=== PATIENT | male | born 1990 | race Caucasian/White ===

== ENCOUNTER 2017-08-23 09:05 | Emergency (ER) | payer SELFPAY ==
[2017-08-23 09:06] VITALS: BP 128/75; PULSE 66; RESP 20; TEMP 37; O2SAT 98; BMI 27.1
--- NOTE | 2017-08-23 09:39 | CT_ITS ---
CT abdomen pelvis wo con CLINICAL INDICATION: ITS.REASON: RT SIDE ABD PAIN ORDERING PHYSICIAN: John Kearns MD PATIENT AGE: 27 years COMPARISON: None TECHNIQUE: Axial images obtained with sagittal and coronal reformats. PROCEDURE: Oral Contrast: None IV Contrast: None . FINDINGS: No acute finding in the lung bases. The liver, gallbladder, spleen, adrenal glands, and pancreas have an unremarkable unenhanced CT appearance. No renal calculi or hydronephrosis. No ureteral calculi. No evidence of appendicitis. There is a small appendicolith in the mid aspect of the body of the appendix but no dilatation or stranding of the periappendiceal fat. No intestinal obstruction or free air. Scattered small lymph nodes present in the mesentery's nonspecific. No pelvic mass abnormal fluid collection or focal inflammatory change. No acute bony anomalies. Small umbilical hernia contains fat IMPRESSION: No acute abdominal or pelvic findings. No evidence of appendicitis or obstructing ureteral calculus. There is an appendicolith present as an incidental finding. Lower thorax: No acute finding ABDOMEN: Liver: No masses or biliary dilatation. Gallbladder: Nondistended. No radio opaque stones. Pancreas: No masses or peripancreatic fluid collections. Spleen: Unremarkable. Adrenals: Unremarkable Kidneys/ureters: No masses. No renal calculi. No hydronephrosis. No perinephric fluid collections. No ureteral dilatation or obvious ureteral calculi. Stomach bowel: Nondistended. No obvious mass or thickening. Appendix: No evidence of appendicitis. PELVIS: Reproductive: Unremarkable Bladder: Nondistended. No obvious stones or masses. ABDOMEN & PELVIS: Peritoneum: No abnormal fluid collections. No obvious inflammatory changes. No free air. Lymph nodes: No enlarged lymph nodes apparent. Vasculature: No evidence of abdominal aortic aneurysm. No retroperitoneal hemorrhage evident. Bones: No acute fracture IMPRESSION: Negative, no acute intra-abdominal or pelvic pathology apparent
--- NOTE | 2017-08-23 09:42 | HMH.EDGENADL ---
ED Disposition Clinical Impression: Flank pain Disposition: Home, Self-Care Condition on Discharge: Good Instructions: DI for Flank Pain Additional Instructions: Ibuprofen for pain. Additional instructions for ABDOMINAL PAIN: See your physician as soon as possible for further evaluation. Return immediately if worsening abdominal pain, vomiting, shortness of breath, fever, vomiting of blood or abdominal distention. Forms: Work/School Release - Critical Care Critical Care Time: No Attestation: On 08/23/17, the high probability of a clinically significant, sudden or life threatening deterioration of the following system(s) required my full and direct attention, intervention and personal management. The time I documented below is in addition to time spent performing reported procedures but includes the following listed in this critical care notation. Medical Decision Making Vital Signs: 08/23/17 09:06 Temperature 98.6 F Temperature Source Oral Pulse Rate [Left Radial] 66 Respiratory Rate 20 Blood Pressure [Left Arm] 128/75 Blood Pressure Mean [Left Arm] 92 Blood Pressure Source [Left Arm] Automatic Cuff Blood Pressure Position [Left Arm] Sitting 02 Sat by Pulse Oximetry 98 Oxygen Delivery Method Room Air - Lab Data Lab results reviewed: Yes: I reviewed the patient's lab results. Lab Results 08/23/17 09:16: WBC 10.0, RBC 5.52, Hgb 16.4, Hct 49.0, MCV 88.8, MCH 29.7, MCHC 33.4, RDW 12.8, Plt Count 201, MPV 7.7, Neut % (Auto) 67.8, Lymph % (Auto) 22.6, [place] % (Auto) 5.9, Eos % (Auto) 3.2, Baso % (Auto) 0.5, Neut # (Auto) 6.8, Lymph # (Auto) 2.3, [place] # (Auto) 0.6, Eos # (Auto) 0.3, Baso # (Auto) 0.1 08/23/17 09:16: Sodium 142, Potassium 3.9, Chloride 105, Carbon Dioxide 27, Anion Gap 13.9, BUN 11, Creatinine 0.88, Estimated Creat Clear 165, Estimated GFR 106, Est GFR ( Amer) 128, Glucose 73 L, Calcium 9.1, Total Bilirubin 0.4, AST 9 L, ALT 35, Alkaline Phosphatase 82, Total Protein 8.0, Albumin 4.4, Globulin 3.6 H, Albumin/Globulin Ratio 1.2 08/23/17 09:30: Urine Color Yellow, Urine Appearance Clear, Urine pH 6.0, Ur Specific [place] >= 1.030, Urine Protein Negative, Urine Glucose (UA) Negative, Urine Ketones Negative, Urine Blood Negative, Urine Nitrate Negative, Urine Bilirubin Negative, Urine Urobilinogen 0.2, Ur Leukocyte Esterase Negative, Urine RBC None, Urine WBC Occasional, Ur Squamous Epith Cells None, Urine Bacteria 1+, Urine Mucus 2+ 08/23/17 09:46: Lipase 175 Result diagrams: 08/23/17 09:16 08/23/17 09:16 Orders (Tests/Meds): ED MEDICATIONS Discontinued Medications Generic Name Dose Route Start Last Admin Trade Name Freq PRN Reason Stop Dose Admin Sodium Chloride 1,000 mls @ 999 mls/hr 08/23/17 09:30 08/23/17 09:45 Sod Chlor 0.9% 1000ml Bag IV 08/23/17 10:30 999 mls/hr .Q1H1M LIA Administration Ketorolac Tromethamine 30 mg 08/23/17 09:30 08/23/17 10:27 Toradol 30mg/Ml Vial IV 08/23/17 09:31 30 mg ONCE ONE Administration Ondansetron HCl 4 mg 08/23/17 09:30 08/23/17 10:27 Zofran 4mg/2ml Vial IV 08/23/17 09:31 4 mg ONCE ONE Administration - CT Data CT Scan: Abdomen, Pelvis Time Received: 10:[address] Reviewed: Yes: I have viewed the radiologist's interpretation Findings Narrative: No acute process. No ureteral calculus. No signs of appendicitis. Incidental appendicolith without any signs of inflammation. - Aramis Inquiry Pt receiving controlled substance: No General Adult HPI - General Chief complaint: Abdominal Pain Stated complaint: sharp pain in r abd Mode of Arrival: Ambulatory Limitations: No Limitations Description of Symptoms (Recalled from ER Triage Doc. by RN): R FLANK PAIN RADIATING AROUND X3 DAYS , PT STARTED HAVING SOME BLOOD IN URINE - History of Present Illness HPI narrative: 3 day history of right upper quadrant and right flank pain, initially intermittent, becoming constant last night. No vomiting or
[2017-08-23 09:52] LABS: Microscopic, Urine URINE MICROSCOPIC (MICROSCOPIC)
[2017-08-23 09:56] LABS: Basophils # 0.1 K/mm3 (0-0.2); Basophils % 0.5 % (0.1-2.0); Eosinophils # 0.3 K/mm3 (0.0-0.4); Eosinophils % 3.2 % (0.1-12.0); Hemoglobin 16.4 g/dL (14.1-18.0); Lymphocytes # 2.3 K/mm3 (0.7-4.5); Lymphocytes % 22.6 K/mm3 (10-50); Mean Corpuscular HGB Conc 33.4 g/dL (31.8-35.4); Mean Corpuscular Hemoglobin 29.7 pg (27.0-31.2); Mean Corpuscular Volume 88.8 fl (80-94); Mean Platelet Volume 7.7 fl (7.4-10.4); Monocytes # 0.6 K/mm3 (0.1-1.0); Monocytes % 5.9 % (1.7-9.3); Neutrophils # 6.8 K/mm3 (1.8-7.8); Neutrophils % 67.8 % (37.0-80.0); Platelet Count 201 K/mm3 (142-424); Red Blood Count 5.52 M/mm3 (4.60-6.20); Red Cell Distribution Width 12.8 % (11.5-17.5)
[2017-08-23 10:05] LABS: Appearance,Urine CLEAR (Clear); Bilirubin,Urine Negative (Negative); Blood, Urine Negative (Negative); Color,Urine YELLOW (Yellow); Glucose,Urine (UA) Negative (Negative); Ketones,Urine Negative (Negative); Leukocyte Esterase,Urine Negative (Negative); Nitrate,Urine Negative (Negative); Protein,Urine Negative (Negative); Specific Gravity, Urine >= 1.030 (1.005-1.030); Urobilinogen,Urine 0.2 EU/dl (0.2)
[2017-08-23 10:09] LABS: Alanine Aminotransferase 35 U/L (12-78); Albumin Level 4.4 gm/dL (3.4-5.0); Albumin/Globulin Ratio 1.2 (1.1-1.8); Alkaline Phosphatase 82 U/L (46-116); Anion Gap 13.9 mEq/L (5-15); Aspartate Amino Transferase 9 U/L (15-37); Bilirubin,Total 0.4 mg/dL (0.2-1.0); Blood Urea Nitrogen 11 mg/dL (7-18); Calcium 9.1 mg/dL (8.5-10.1); Carbon Dioxide 27 mmol/L (21.0-32.0); Chloride 105 mmol/L (98-107); Creatinine Clearance Estimated 165 mL/min (0-300); Creatinine,Serum 0.88 mg/dL (0.70-1.30); Estimated Glomerular Filt Rate 106 ml/min (>60); GFR (African American) 128 ML/MIN (>60); Globulin 3.6 gm/dl (1.3-3.2); Glucose 73 mg/dL (74-106); Potassium 3.9 mmoL/L (3.5-5.1); Sodium 142 mmol/L (136-145)
[2017-08-23 10:21] LABS: Bacteria,Urine 1+ /lpf; Mucus,Urine 2+ /lpf; WBC,Urine Occasional #/hpf (0-3)
[2017-08-23 10:25] LABS: Lipase 175 u/L (73-393)
[2017-08-23 11:07] VITALS: BP 117/73; PULSE 54; RESP 16; TEMP 36.9; O2SAT 100
== END 2017-08-23 11:19 | disposition home or self-care (01) ==
PROVIDERS: Emergency Provider Emergency Medicine
DX: R10.11 Right upper quadrant pain (principal); R10.31 Right lower quadrant pain; R31.9 Hematuria, unspecified; F17.210 Nicotine dependence, cigarettes, uncomplicated
CPT/HCPCS: 74176; 80053; 81001; 83690; 85025; 96365; 96374; 96375; 99282; J2405

== ENCOUNTER 2017-08-29 10:43 | Emergency (ER) | payer SELFPAY ==
[2017-08-29 11:11] VITALS: BP 123/82; PULSE 78; RESP 20; TEMP 36.8; O2SAT 98; BMI 27.1
--- NOTE | 2017-08-29 11:18 | HMH.EDUTC ---
[facility] [place] Disposition Clinical Impression: Elbow sprain Qualifiers: Encounter type: initial encounter Laterality: left Qualified Code(s): S53.402A - Unspecified sprain of left elbow, initial encounter Disposition: Home, Self-Care Condition on Discharge: Good Instructions: How To Perform RICE (Rest, Ice, Compress, Elevate), DI for Elbow Pain Additional Instructions: *RICE, Rest the extremity, Ice 15-20 minutes 3-4 times daily, Compress- wear the hans wrap as discussed as much as possible to help reduce swelling and pain, Elevate the extremity when at rest *Hans wrap is for support and help control swelling, use it except in the shower. Be sure that is not to tight but not to loose either *Elevate when resting *Ibuprofen 600-800mg every 6-8 hours as needed for pain an inflammation. If need something more can take Tylenol in between doses of Ibuprofen to help Immediately follow up for new or worsening of symptoms, or no noticeable improvement over the next 3-5 days Prescriptions: Ibuprofen [Ibuprofen 800mg Tab] 800 mg PO Q8HP PRN #24 tab PRN Reason: Moderate Pain Referrals: Elliot Yoo MD [Staff Physician] - Ben Cheema MD [Staff Physician] - Forms: Work/School Release Time of Disposition: 12:53 Medical Decision Making - Medical Records Medical records reviewed: Yes: I reviewed the patient's medical records. Vital Signs: 08/29/17 11:11 Temperature 98.2 F Temperature Source Temporal Artery Scan Pulse Rate [Right Radial] 78 Respiratory Rate 20 Blood Pressure [Right Arm] 123/82 Blood Pressure Mean [Right Arm] 95 02 Sat by Pulse Oximetry 98 Oxygen Delivery Method Room Air Orders (Tests/Meds): ORDERS Category Date Time Status Elbow XR left mininum 3 views [XR elbow LT min 3V] Stat Exams 08/29/17 11:56 Taken - Radiology Data #1 Image(s): Elbow Image Reviewed: Yes I reviewed the patient's radiology image w/the ED provider Preliminary Findings: Normal/NAD, No Fracture Seen - Aramis Inquiry Pt receiving controlled substance: No Aramis was queried for this patient: No - Reevaluation(s) Time: 12:28 Reevaluation #1: Consulted with ER physician Dr Feng adivised that he would come and evaluate patient Time: 12:53 Reevaluation #3: Dr Feng came to [facility] observed carlostent and agreed with sling, ice, and follow up with Orthopedics [facility] [place] HPI - General Stated complaint: [id number] left elbow Mode of Arrival: Family Vehicle Source of Information: Patient Limitations: No Limitations Description of Symptoms (Recalled from Triage Doc. by RN): pt states he injured his left elbow at work today. pt works at [employer]. HEENT Symptoms (Recalled from RN notes): No Resp Symptoms (Recalled from RN notes): No Skin Symptoms (Recalled from RN notes): No MS Symptoms (Recalled from RN notes): Yes (left elbow) Functional Status (Recalled from RN notes): na - History of Present Illness Provider Complaint: Patient state that he was pulling on a wrench at work when he felt his left elbow lock up State that he did not hit the elbow on anything it just began shooting pain down his arm and then it hurt to bend his arm or try to straighten it out. State that his job made him come up here and get it checked out - Related Data Previous Rx's Medication Instructions Recorded Ibuprofen [Ibuprofen 800mg Tab] 800 mg PO Q8HP PRN #24 tab 08/29/17 Allergies Allergy/AdvReac Type Severity Reaction Status Date / Time No Known Allergies Allergy Verified 08/23/17 09:52 - Worker's Comp Is this a Worker's Comp case?: Yes Is this an [facility] Worker's Comp?: No Is this a [facility] Worker's Comp?: No [facility] History I have reviewed the patient's past medical history: Yes Medical History: Denies:: Cancer, Diabetes Mellitus Type 1, Diabetes Mellitus Type 2, MRSA Amputation: No Fractures: No - Social History Smoking Status: Current every day smoker Tobacco Type: cigarettes # Packs/Day (cigarettes): 1 #Yrs smoke
--- NOTE | 2017-08-29 11:24 | ED_ITS ---
[facility] [place] Disposition Clinical Impression: Elbow sprain Qualifiers: Encounter type: initial encounter Laterality: left Qualified Code(s): S53.402A - Unspecified sprain of left elbow, initial encounter Disposition: Home, Self-Care Condition on Discharge: Good Instructions: How To Perform RICE (Rest, Ice, Compress, Elevate), DI for Elbow Pain Additional Instructions: *RICE, Rest the extremity, Ice 15-20 minutes 3-4 times daily, Compress- wear the hans wrap as discussed as much as possible to help reduce swelling and pain, Elevate the extremity when at rest *Hans wrap is for support and help control swelling, use it except in the shower. Be sure that is not to tight but not to loose either *Elevate when resting *Ibuprofen 600-800mg every 6-8 hours as needed for pain an inflammation. If need something more can take Tylenol in between doses of Ibuprofen to help Immediately follow up for new or worsening of symptoms, or no noticeable improvement over the next 3-5 days Prescriptions: Ibuprofen [Ibuprofen 800mg Tab] 800 mg PO Q8HP PRN #24 tab PRN Reason: Moderate Pain Referrals: Elliot Yoo MD [Staff Physician] - Ben Cheema MD [Staff Physician] - Forms: Work/School Release Time of Disposition: 12:53 Medical Decision Making - Medical Records Medical records reviewed: Yes: I reviewed the patient's medical records. Vital Signs: 08/29/17 11:11 Temperature 98.2 F Temperature Source Temporal Artery Scan Pulse Rate [Right Radial] 78 Respiratory Rate 20 Blood Pressure [Right Arm] 123/82 Blood Pressure Mean [Right Arm] 95 02 Sat by Pulse Oximetry 98 Oxygen Delivery Method Room Air Orders (Tests/Meds): ORDERS Category Date Time Status Elbow XR left mininum 3 views [XR elbow LT min 3V] Stat Exams 08/29/17 11:56 Taken - Radiology Data #1 Image(s): Elbow Image Reviewed: Yes I reviewed the patient's radiology image w/the ED provider Preliminary Findings: Normal/NAD, No Fracture Seen - Aramis Inquiry Pt receiving controlled substance: No Aramis was queried for this patient: No - Reevaluation(s) Time: 12:28 Reevaluation #1: Consulted with ER physician Dr Feng adivised that he would come and evaluate patient Time: 12:53 Reevaluation #3: Dr Feng came to [facility] observed carlostent and agreed with sling, ice, and follow up with Orthopedics [facility] [place] HPI - General Stated complaint: [id number] left elbow Mode of Arrival: Family Vehicle Source of Information: Patient Limitations: No Limitations Description of Symptoms (Recalled from Triage Doc. by RN): pt states he injured his left elbow at work today. pt works at [employer] HEENT Symptoms (Recalled from RN notes): No Resp Symptoms (Recalled from RN notes): No Skin Symptoms (Recalled from RN notes): No MS Symptoms (Recalled from RN notes): Yes (left elbow) Functional Status (Recalled from RN notes): na - History of Present Illness Provider Complaint: Patient state that he was pulling on a wrench at work when he felt his left elbow lock up State that he did not hit the elbow on anything it just began shooting pain down his arm and then it hurt to bend his arm or try to straighten it out. State that his job made him come up here and get it checked out - Related Data Previous Rx's Medication Instructions Recorded Ibuprofen [Ibuprofen 800mg Tab] 800 mg PO Q8HP PRN #24 tab 08/29/17 Allergi
--- NOTE | 2017-08-29 11:56 | XR_ITS ---
XR elbow LT min 3V HISTORY: Pain following injury ITS.REASON: work injury ORDERING PHYSICIAN: Bonnie Milligan PATIENT AGE: 27 years COMPARISON: None FINDINGS: No fracture or dislocation.. Small bone island involving the distal humerus laterally. Small sclerotic focus is present at the proximal radius consistent with a small bone island as well. No displaced fat pad. IMPRESSION: No acute finding. Small bone islands of the distal humerus and proximal radius
[2017-08-29 13:20] VITALS: BP 120/83; PULSE 85; RESP 18; TEMP 36.4; O2SAT 100
== END 2017-08-29 13:24 | disposition home or self-care (01) ==
PROVIDERS: Emergency Provider Nurse Practitioner
DX: S53.402A Unspecified sprain of left elbow, initial encounter (principal); F17.210 Nicotine dependence, cigarettes, uncomplicated
CPT/HCPCS: 73080; 99202

== ENCOUNTER 2017-12-01 11:43 | Outpatient (CLI) | payer SELFPAY | END 2017-12-01 12:30 | disposition home or self-care (01) | LOC: UTC.OUT 11:45 | PROVIDERS: Visit Provider Nurse Practitioner Family | DX: Z02.4 Encounter for examination for driving license (principal) ==